=== PATIENT | male | born 1965 | race Two or more races ===

== ENCOUNTER 2021-01-31 11:51 | Emergency (ER) | payer BC ==
[~2021-01-31 11:51] MED LIST: ULTRAM50 M1 OR
[2021-01-31 13:39] LABS: URINE BILIRUBIN - DIPSTICK NEGATIVE (NEGATIVE); URINE BLOOD DIPSTICK NEGATIVE (NEGATIVE); URINE COLOR YELLOW; URINE GLUCOSE - DIPSTICK NEGATIVE (NEGATIVE); URINE KETONE NEGATIVE (NEGATIVE); URINE LEUK ESTERASE NEGATIVE (NEGATIVE); URINE NITRITE - DIPSTICK NEGATIVE (Negative); URINE PH 6.5 (4.5-8.0); URINE PROTEIN - DIPSTICK NEGATIVE (NEG-TRACE); URINE SPECIFIC GRAVITY <=1.005; URINE UROBILINOGEN - DIPSTICK 0.2 E.U./dL (0.2)
[2021-01-31 13:44] LABS: HEMATOCRIT 44.6 % (39.0-50.0); HEMOGLOBIN 14.4 g/dl (14.0-18.0); MEAN CELL VOLUME 93.3 fL CALC (80.0-100.0); MEAN CORPUSCULAR HGB 30.1 pG CALC (26.0-32.0); MEAN CORPUSCULAR HGB CONC 32.3 g/dL CAL (32.0-36.0); NEUT# 2.27 thou/uL (1.82-7.42); RED BLOOD COUNT 4.78 mill/uL (4.70-6.10); RED CELL DISTRI WIDTH 13.4 % (11.5-15.5)
[2021-01-31 13:54] LABS: ALBUMIN 4.1 g/dL (3.2-5.0); ALKALINE PHOSPHATASE 48 u/l (38-126); ANION GAP 11 (6-22 (CALC)); BILIRUBIN, TOTAL 0.6 mg/dL (0.0-1.4); BUN 15 mg/dL (9-20); BUN/CREATININE RATIO 17 (12-20 (CALC)); C-REACTIVE PROTEIN < 0.5 mg/dL (0-0.9); CARBON DIOXIDE 26 mmol/l (22-30); CHLORIDE 103 mmol/l (95-108); CREATININE 0.9 mg/dL (0.7-1.3); GFR > 60 ML/MIN (>=60 (CALC)); GFR FOR AFR.AMER. > 60 ML/MIN (>=60 (CALC)); POTASSIUM 4.2 mmol/l (3.5-5.1); SGOT/AST 22 u/l (17-59); SODIUM 136 mmol/l (137-146)
[2021-01-31 16:20] VITALS: BP 142/68
[2021-01-31] MEDS ORDERED: NAPROXEN500 MG PO (19:32)
[2021-03-21] MEDS ORDERED: GABAPENTIN100 MG PO (11:02)
[2021-03-21] MEDS ORDERED: LISINOPRIL5 MG PO (11:02)
[2021-03-21] MEDS ORDERED: CIALIS5 MG PO (11:03)
== END 2021-01-31 19:35 | disposition home or self-care (01) | DRG 556 ==
LOC: ED 11:51
PROVIDERS: Emergency Medicine
DX: M79.605 Pain in left leg (principal); M79.604 Pain in right leg; M79.672 Pain in left foot; M79.671 Pain in right foot; D73.4 Cyst of spleen
CPT/HCPCS: Q9967